=== PATIENT | male | born 1995 | race African-American/Black ===

== ENCOUNTER 2018-08-30 02:47 | Emergency (ER) | payer BC, OTHER ==
[~2018-08-30] VITALS: Ht 182.9 cm; Wt 73.0 kg
[2018-08-30 03:13] VITALS: BP 141/90
[2018-08-30] MEDS ORDERED: PREDNISONE 20MG TABLET PO ONE (03:45)
== END 2018-08-30 04:15 | disposition home or self-care (01) ==
LOC: ER 04:12
DX: L29.8 Other pruritus (principal); M10.9 Gout, unspecified
CPT/HCPCS: 99283; J7512

== ENCOUNTER 2019-01-21 16:12 | Emergency (ER) | payer BC, OTHER ==
[~2019-01-21] VITALS: Ht 182.9 cm; Wt 69.5 kg
[2019-01-21 16:25] VITALS: BP 118/73
== END 2019-01-21 18:44 | disposition home or self-care (01) ==
LOC: ER 16:12
DX: S69.82XA Other specified injuries of left wrist, hand and finger(s), initial encounter (principal); W10.8XXA Fall (on) (from) other stairs and steps, initial encounter; Y93.89 Activity, other specified; Y92.018 Other place in single-family (private) house as the place of occurrence of the external cause
CPT/HCPCS: 73130; 99283